=== PATIENT | male | born 1980 | race African-American/Black ===

== ENCOUNTER 2016-09-04 09:00 | Emergency (ER) | payer SELFPAY ==
[~2016-09-04] VITALS: Ht 182.9 cm; Wt 81.0 kg
[2016-09-04] MEDS ORDERED: ALBUTEROL (0.083%) 2.5MG/3ML NEB HHN STA (09:08)
[2016-09-04] MEDS ORDERED: MAGNESIUM 2 G PREMIX 50 ML IV STA (09:08)
[2016-09-04] MEDS ORDERED: IPRATROPIUM BROMIDE (0.02%) 0.5MG/2.5ML NEB HHN STA (09:08)
[2016-09-04] MEDS ORDERED: METHYLPREDNISOLONE SOD SUCC 125 MG/2 ML VIAL IV STA (09:08)
[2016-09-04] MEDS ORDERED: SODIUM CHLORIDE 0.9% 1,000 ML IV ONE (09:13)
[2016-09-04] MEDS ORDERED: PREDNISONE 20MG TABLET PO ONE (10:00)
[2016-09-04 11:15] VITALS: BP 155/79
== END 2016-09-04 11:51 | disposition home or self-care (01) ==
LOC: ER 11:51
DX: J45.901 Unspecified asthma with (acute) exacerbation (principal); R03.0 Elevated blood-pressure reading, without diagnosis of hypertension
CPT/HCPCS: 71010; 94640; 96365; 96375; 99284; J2930; J3475; J7512; J7611; Z7610; J7030

== ENCOUNTER 2017-02-20 02:05 | Emergency (ER) | payer SELFPAY ==
[~2017-02-20] VITALS: Ht 185.4 cm; Wt 81.0 kg
[2017-02-20] MEDS ORDERED: ALBUTEROL (0.083%) 2.5MG/3ML NEB HHN STA (02:22)
[2017-02-20] MEDS ORDERED: IPRATROPIUM BROMIDE (0.02%) 0.5MG/2.5ML NEB HHN STA (02:22)
[2017-02-20] MEDS ORDERED: PREDNISONE 20MG TABLET PO STA (02:22)
[2017-02-20 04:10] VITALS: BP 158/85
== END 2017-02-20 04:10 | disposition home or self-care (01) ==
LOC: ER 02:05
DX: J45.901 Unspecified asthma with (acute) exacerbation (principal); F12.10 Cannabis abuse, uncomplicated
CPT/HCPCS: 94640; 99283; J7512; J7611

== ENCOUNTER 2017-03-28 13:21 | Emergency (ER) | payer MEDICAID ==
[~2017-03-28] VITALS: Ht 180.3 cm; Wt 84.0 kg
[2017-03-28] MEDS ORDERED: PREDNISONE 20MG TABLET PO STA (15:00)
[2017-03-28] MEDS ORDERED: ALBUTEROL (0.083%) 2.5MG/3ML NEB HHN STA (15:00)
[2017-03-28] MEDS ORDERED: IPRATROPIUM BROMIDE (0.02%) 0.5MG/2.5ML NEB HHN STA (15:00)
[2017-03-28 15:39] LABS: BASOPHILS % 0.4 % (0.0-2.0); EOSINOPHILS % 0.5 % (0.0-5.0); HEMATOCRIT. 46.6 % (42.0-52.0); HEMOGLOBIN. 15.3 g/dL (14.0-18.0); LYMPHOCYTES % 11.5 % (20.0-50.0); MEAN CORPUSCULAR HEMOGLOBIN 28.4 pg (28.0-32.0); MEAN CORPUSCULAR VOLUME 86.2 fL (80.0-94.0); MEAN PLATELET VOLUME 7.1 fl (7.4-10.4); MONOCYTES % 6.9 % (2.0-8.0); NEUTROPHILS % 80.7 % (40.0-76.0); PLATELET 277 x1000/uL (130-400)
[2017-03-28 15:41] LABS: CHLORIDE 105 mEq/L (98-107)
[2017-03-28 15:50] LABS: CARBON DIOXIDE 27 mEq/L (21-32)
[2017-03-28 17:42] VITALS: BP 135/65
== END 2017-03-28 18:05 | disposition home or self-care (01) ==
LOC: ER 14:50
DX: J45.901 Unspecified asthma with (acute) exacerbation (principal); F17.200 Nicotine dependence, unspecified, uncomplicated; F12.10 Cannabis abuse, uncomplicated
CPT/HCPCS: 36415; 71010; 80053; 85025; 93005; 94640; 99285; J7512; J7611; Z7610

== ENCOUNTER 2017-09-03 12:58 | Emergency (ER) | payer SELFPAY ==
[~2017-09-03] VITALS: Ht 180.3 cm; Wt 82.0 kg
[2017-09-03] MEDS ORDERED: METHYLPREDNISOLONE SOD SUCC 125 MG/2 ML VIAL IV STA (14:12)
[2017-09-03] MEDS ORDERED: IPRATROPIUM/ALBUTEROL 0.5-3(2.5)MG/3ML NEB HHN ONE ×2 (14:15→15:15)
[2017-09-03] MEDS ORDERED: ALBUTEROL (0.083%) 2.5MG/3ML NEB HHN STA (19:09)
[2017-09-03 20:50] VITALS: BP 141/79
== END 2017-09-03 21:10 | disposition home or self-care (01) ==
LOC: ER 15:41
DX: J45.901 Unspecified asthma with (acute) exacerbation (principal); F12.10 Cannabis abuse, uncomplicated
CPT/HCPCS: 71045; 94640; 96374; 99285; J2930; J7611; J7620